=== PATIENT | male | born 1955 ===

== ENCOUNTER 2022-03-10 06:32 | Day surgery (SDC) | payer OTHER ==
[~2022-03-10] VITALS: Ht 175.3 cm; Wt 77.6 kg
[~2022-03-10 06:32] MED LIST: BRIMONIDINE TART5 ML OPHT; COZAAR100 MG PO
[2022-03-10] MEDS ORDERED: ULTRACET PO (07:43)
== END 2022-03-10 16:20 | disposition home or self-care (01) ==
LOC: CIR.AMB 06:32 → O/R 08:04 → CIR.AMB 08:04 → O/R 15:15
PROVIDERS: ATTEND Surgery
DX: D37.5 Neoplasm of uncertain behavior of rectum (principal); R59.0 Localized enlarged lymph nodes; K62.5 Hemorrhage of anus and rectum; Z20.822 Contact with and (suspected) exposure to COVID-19; I10 Essential (primary) hypertension

== ENCOUNTER 2022-03-29 09:30 | Inpatient (IN) | payer OTHER ==
[~2022-03-29] VITALS: Ht 175.3 cm; Wt 77.1 kg
[~2022-03-29 09:30] MED LIST changes: +ULTRACET PO
[2022-04-02] MEDS ORDERED: CIPRO500 MG PO (11:26)
[2022-04-02] MEDS ORDERED: METRONIDAZOLE500 MG PO (11:26)
== END 2022-04-02 13:38 | disposition home or self-care (01) | DRG 375 ==
LOC: O/R 03-31 06:40 → SURH 03-31 09:30 → SURG 03-31 15:36 → SURH 03-31 16:16
PROVIDERS: ADMIT Surgery; ATTEND Surgery
PROC: 3E0F7SF Introduction of Other Gas into Respiratory Tract, Via Natural or Artificial Opening (ICD-10-PCS; 2022-03-31)
PROC: 0DBP8ZZ Excision of Rectum, Via Natural or Artificial Opening Endoscopic (ICD-10-PCS; principal; 2022-03-31 13:45)
DX: C20 Malignant neoplasm of rectum (principal); K62.5 Hemorrhage of anus and rectum; K62.89 Other specified diseases of anus and rectum